=== PATIENT | female | born 1935 | race Caucasian/White ===

== ENCOUNTER 2018-08-24 10:09 | Outpatient (CLI) | payer MEDICARE ==
--- NOTE | 2018-08-24 12:21 | ULT ---
ABDOMINAL AORTIC ULTRASOUND: Date: 08/24/18 COMPARISON: None. HISTORY: Abdominal aortic aneurysm. TECHNIQUE: Multiplanar White scale sonographic imaging of the abdominal aorta. Images include color flow and spec tral analysis. FINDINGS: Evaluation of the abdominal aorta is limited secondary to partial obscuration by bowel gas. The abdominal aorta proximally is estimated to measure up to 3.1 x 2.8 cm. Mid abdominal aorta measur es in the 1.5 x 1.5 cm range and distal abdominal aorta measures in the 1.5 x 1.3 cm range. Right common iliac artery measures approximately 1.0 cm and the left common iliac artery measures shamar roximately 1.1 cm. IMPRESSION: Limited assessment of the abdominal aorta secondary to bowel gas demonstrating probable aneurysmal di lation proximally. A CT examination would be the study of choice to fully assess the abdominal aortic caliber. POS: [facility]
== END 2018-08-24 10:10 | disposition home or self-care (01) ==
LOC: NAV ULT 10:09
PROVIDERS: ATTEND Internal Medicine
DX: I71.4 Abdominal aortic aneurysm, without rupture (principal)
CPT/HCPCS: 76775

== ENCOUNTER 2020-07-15 11:14 | Emergency (ER) | payer MEDICAID, MEDICARE ==
[2020-07-15 11:57] LABS: #Basophils 0.2 thou/uL (0.0-0.2); #Eosinphils 0.3 thou/uL (0.0-0.7); #Lymphocytes 2.5 thou/uL (1.20-3.40); #Monocytes 0.7 thou/uL (0.11-0.59); #Neutrophils 6.5 thou/uL (1.40-6.50); %Basophils 1.6 % (0.0-1.0); %Eosinophils 3.3 % (0.0-10.0); %Lymphocytes 24.1 % (21.0-51.0); %Monocytes 7.2 % (0.0-10.0); %Neutrophils 63.7 % (42.0-75.0); Hemoglobin 5.6 g/dL (12.0-16.0); Mean Corpuscular HGB CONC 27.5 g/dL (32.0-36.0); Mean Corpuscular Hemoglobin 18.2 pg (27.0-31.0); Platelet Count 609 thou/uL (130-400); RBC Distribution Width 15.9 % (11.5-14.5); Red Blood Cell (RBC) Count 3.06 mill/uL (4.20-5.40); White Blood Cell (WBC) Count 10.2 thou/uL (4.8-10.8)
[2020-07-15 12:07] LABS: INR-International Normal Ratio 1.1; PTT 31.5 sec (22.9-36.1); Prothrombin Time 13.8 sec (12.0-14.7)
[2020-07-15 12:08] LABS: ALT (SGPT) 6 U/L (8-55); AST (SGOT) 13 U/L (5-34); Albumin 3.7 g/dL (3.4-4.8); Alkaline Phosphatase 147 U/L (40-110); Anion Gap 13 mmol/L (10-20); BUN (Urea Nitrogen) 14 mg/dL (9.8-20.1); Bilirubin, Total 0.2 mg/dL (0.2-1.2); Calc. Creatinine Clearance 0 mL/min (70-130); Calcium 8.4 mg/dL (7.8-10.44); Carbon Dioxide 24 mmol/L (23-31); Chloride 103 mmol/L (98-107); Estimated GFR-MDRD 60; Globulin 3.4 g/dL (2.4-3.5); Glucose 94 mg/dL (83-110); Potassium 3.7 mmol/L (3.5-5.1); Protein, Total 7.1 g/dL (6.0-8.3); Sodium 136 mmol/L (136-145)
[2020-07-15 12:55] LABS: Bacteria/HPF 4+ HPF (None Seen); Bilirubin Negative (Negative); Blood, Urine Negative (Negative); Clarity SL HAZY (Clear); Glucose, Urine (Dipstick) Negative (Negative); Ketone, Urine Negative (Negative); Leukocyte Large (Negative); Nitrite Positive (Negative); Protein, Urine (Dipstick) Negative (Neg-Trace); Specific Gravity, Urine 1.015 (1.005-1.030); Squamous Epithelial 0-3 HPF (0-3); Transitional Epithelial 0-3 HPF (None Seen); Urobilinogen 0.2 mg/dL (Less than 2); WBC/HPF Greater Than 50 HPF (0-3)
--- NOTE | 2020-07-15 13:04 | RAD ---
PORTABLE CHEST: Date: 07/15/2020 HISTORY: Mental status change. FINDINGS: Mild cardiomegaly. Vascular markings normal. 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 No evidence of infiltrate or effusion. No evidence of vascular congestion. IMPRESSION: No evidence of acute process. POS: [facility]
[2020-07-15] MEDS ORDERED: Pantoprazole 40 MG VIAL ONE (13:19)
== END 2020-07-15 14:22 | disposition short-term general hospital (02) ==
LOC: NAV ERS 11:14
DX: D64.9 Anemia, unspecified (principal); K21.0 Gastro-esophageal reflux disease with esophagitis; I10 Essential (primary) hypertension; F32.9 Major depressive disorder, single episode, unspecified; I48.91 Unspecified atrial fibrillation; Z79.899 Other long term (current) drug therapy
CPT/HCPCS: 51701; 71045; 80053; 81003; 81015; 82274; 83605; 85025; 85610; 85730; 96374; C9113

== ENCOUNTER 2022-09-05 15:05 | Inpatient (IN) | payer MEDICARE ==
[2022-09-05] MEDS ORDERED: Bisacodyl 5 MG TAB PO PRN (16:15)
[2022-09-05] MEDS ORDERED: Acetaminophen 650 MG Suppository PR PRN (16:15)
[2022-09-05] MEDS ORDERED: Bisacodyl 10 MG SUPP PR PRN (16:15)
[2022-09-05] MEDS ORDERED: Acetaminophen 325 MG TAB PO PRN (16:15)
[2022-09-05] MEDS ORDERED: Artificial Tear Sol 15 ML BOT EA EYE PRN (16:15)
[2022-09-05] MEDS ORDERED: Calcium Carbonate 500 MG ChewTAB PO PRN (16:15)
[2022-09-05] MEDS ORDERED: Sodium Chloride 0.65% Nasal 44 ML BOT EA NARE PRN (16:15)
[2022-09-05] MEDS ORDERED: Ondansetron PF 4 MG/2 ML Vial IVP PRN (16:15)
[2022-09-05] MEDS ORDERED: Albuterol Sulfate 2.5 mg/3 ml Neb NEB PRN (16:19)
[2022-09-05 16:53] LABS: Anion Gap 14 mmol/L (10-20); BUN (Urea Nitrogen) 22 mg/dL (9.8-20.1); Calc. Creatinine Clearance 38 mL/min (70-130); Calcium 8.6 mg/dL (7.8-10.44); Carbon Dioxide 24 mmol/L (23-31); Chloride 108 mmol/L (98-107); Estimated GFR 44; Glucose 128 mg/dL (83-110); Potassium 4.9 mmol/L (3.5-5.1); Sodium 141 mmol/L (136-145)
[2022-09-05 16:54] LABS: #Basophils 0.1 thou/uL (0.0-0.2); #Eosinphils 0.4 thou/uL (0.0-0.7); #Lymphocytes 1.6 thou/uL (1.20-3.40); #Monocytes 0.7 thou/uL (0.11-0.59); #Neutrophils 7.1 thou/uL (1.40-6.50); %Eosinophils 4.3 % (0.0-10.0); %Lymphocytes 16.3 % (21.0-51.0); %Monocytes 7.3 % (0.0-10.0); %Neutrophils 71.1 % (42.0-75.0); Hemoglobin 10.2 g/dL (12.0-16.0); Mean Corpuscular Hemoglobin 23.9 pg (27.0-31.0); Mean Corpuscular Volume 79.7 fL (78.0-98.0); Mean Platelet Volume 5.7 fL (7.4-10.4); Platelet Count 424 thou/uL (130-400); RBC Distribution Width 19.2 % (11.5-14.5); Red Blood Cell (RBC) Count 4.26 mill/uL (4.20-5.40)
[2022-09-05] MEDS ORDERED: HYDROcodone/Acetaminophen 5/325 mg Tablet ONE (19:17)
[2022-09-05] MEDS ORDERED: Mirtazapine 30 MG TAB PO SCH (21:00)
[2022-09-05] MEDS: Transdermal Patch Removal TOP SCH (21:41)
[2022-09-05] MEDS: ALPRAZolam 0.5 MG TAB PO PRN (21:47)
[2022-09-05] MEDS: Benzonatate 100 MG CAP PO PRN (21:47)
[2022-09-06] MEDS: HYDROcodone/Acetaminophen 5/325 mg Tablet PO PRN ×4 (05:25→20:44)
[2022-09-06 06:17] LABS: SARS-CoV-2 NAA Rapid Test Not Detected (NotDetected)
[2022-09-06] MEDS: Levothyroxine Sodium 100 MCG TAB PO SCH (08:58)
[2022-09-06] MEDS: DULoxetine 30 MG CAP PO SCH (08:58)
[2022-09-06] MEDS: Lidocaine 5% Patch TD SCH (08:59)
[2022-09-06] MEDS ORDERED: FLU VACC QS2022-23(65YR UP)/PF 240 MCG/0.7 ML SYRINGE IM ONE (09:00)
[2022-09-06] MEDS: Cepastat Lozenges 1 LOZ PO PRN (14:00)
[2022-09-06] MEDS: Polyethylene Glycol 3350 17 GM Packet PO PRN (17:30)
[2022-09-06] MEDS: Benzonatate 100 MG CAP PO PRN (17:32)
[2022-09-06] MEDS ORDERED: Lisinopril 10 MG TAB PO SCH (18:30)
[2022-09-06] MEDS: ALPRAZolam 0.5 MG TAB PO PRN (20:45)
[2022-09-06] MEDS: Transdermal Patch Removal TOP SCH (20:51)
[2022-09-07 00:33] LABS: Bilirubin Negative (Negative); Blood, Urine Negative (Negative); Clarity Clear (Clear); Glucose, Urine (Dipstick) Negative (Negative); Ketone, Urine Negative (Negative); Leukocyte Negative (Negative); Nitrite Negative (Negative); Protein, Urine (Dipstick) Negative (Neg-Trace); Specific Gravity, Urine 1.015 (1.005-1.030); Urobilinogen 0.2 mg/dL (Less than 2); pH, Urine 7.5 (5.0-9.0)
[2022-09-07 00:35] LABS: Bacteria/HPF None Seen HPF (None Seen); RBC/HPF None Seen HPF (0-3); Squamous Epithelial None Seen HPF (0-3); WBC/HPF None Seen HPF (0-3)
[2022-09-07] MEDS: HYDROcodone/Acetaminophen 5/325 mg Tablet PO PRN ×3 (07:16→20:15)
[2022-09-07] MEDS: Levothyroxine Sodium 100 MCG TAB PO SCH (09:09)
[2022-09-07] MEDS: Lidocaine 5% Patch TD SCH (09:09)
[2022-09-07] MEDS: Lisinopril 10 MG TAB PO SCH (09:09)
[2022-09-07] MEDS: DULoxetine 30 MG CAP PO SCH (09:09)
[2022-09-07] MEDS: Polyethylene Glycol 3350 17 GM Packet PO PRN (13:04)
[2022-09-07] MEDS: Benzonatate 100 MG CAP PO PRN (20:15)
[2022-09-07] MEDS: ALPRAZolam 0.5 MG TAB PO PRN (21:27)
[2022-09-07] MEDS: Transdermal Patch Removal TOP SCH (21:32)
[2022-09-08] MEDS: Morphine 4 MG/ML VIAL SLOW IVP PRN (05:20)
[2022-09-08] MEDS: Levothyroxine Sodium 100 MCG TAB PO SCH (09:56)
[2022-09-08] MEDS: Lisinopril 10 MG TAB PO SCH (09:56)
[2022-09-08] MEDS: DULoxetine 30 MG CAP PO SCH (09:56)
[2022-09-08] MEDS: Lidocaine 5% Patch TD SCH (09:57)
[2022-09-08] MEDS: HYDROcodone/Acetaminophen 5/325 mg Tablet PO PRN (14:57)
[2022-09-08] MEDS: ALPRAZolam 0.5 MG TAB PO PRN (20:43)
[2022-09-08] MEDS: Guaifenesin DM 100-10/5 ML UDCUP PO PRN (20:43)
[2022-09-08] MEDS: Transdermal Patch Removal TOP SCH (20:48)
[2022-09-09] MEDS: Guaifenesin DM 100-10/5 ML UDCUP PO PRN ×3 (07:00→20:24)
[2022-09-09] MEDS: HYDROcodone/Acetaminophen 5/325 mg Tablet PO PRN ×3 (07:00→17:57)
[2022-09-09] MEDS: DULoxetine 30 MG CAP PO SCH (09:00)
[2022-09-09] MEDS: Levothyroxine Sodium 100 MCG TAB PO SCH (09:00)
[2022-09-09] MEDS: Lisinopril 10 MG TAB PO SCH (09:00)
[2022-09-09] MEDS: Lidocaine 5% Patch TD SCH (09:01)
[2022-09-09] MEDS: ALPRAZolam 0.5 MG TAB PO PRN (20:23)
[2022-09-09] MEDS: Transdermal Patch Removal TOP SCH (20:35)
[2022-09-10] MEDS: Levothyroxine Sodium 100 MCG TAB PO SCH (05:00)
[2022-09-10] MEDS: Morphine 4 MG/ML VIAL SLOW IVP PRN ×2 (06:29→14:58)
[2022-09-10] MEDS: DULoxetine 30 MG CAP PO SCH (07:47)
[2022-09-10] MEDS: Lisinopril 10 MG TAB PO SCH (07:47)
[2022-09-10] MEDS: Lidocaine 5% Patch TD SCH (07:48)
[2022-09-10] MEDS: Benzonatate 100 MG CAP PO PRN (15:06)
[2022-09-10] MEDS: HYDROcodone/Acetaminophen 5/325 mg Tablet PO PRN (20:57)
[2022-09-10] MEDS: Transdermal Patch Removal TOP SCH (20:58)
[2022-09-10] MEDS ORDERED: ALPRAZolam 0.5 MG TAB ONE (21:20)
[2022-09-10] MEDS: ALPRAZolam 0.5 MG TAB PO PRN (21:59)
[2022-09-11] MEDS: Cepastat Lozenges 1 LOZ PO PRN ×2 (05:39→08:11)
[2022-09-11] MEDS: Levothyroxine Sodium 100 MCG TAB PO SCH (05:39)
[2022-09-11] MEDS: Morphine 4 MG/ML VIAL SLOW IVP PRN (07:53)
[2022-09-11] MEDS: Lidocaine 5% Patch TD SCH (08:03)
[2022-09-11] MEDS: Lisinopril 10 MG TAB PO SCH (08:06)
[2022-09-11] MEDS: DULoxetine 30 MG CAP PO SCH (08:06)
[2022-09-11] MEDS: Ondansetron ODT 4 MG TAB PO PRN (11:05)
[2022-09-11] MEDS: HYDROcodone/Acetaminophen 5/325 mg Tablet PO PRN ×3 (11:26→20:40)
[2022-09-11] MEDS: Cyclobenzaprine 10 MG TAB PO PRN ×2 (13:14→20:40)
[2022-09-11] MEDS: Senokot S 8.6-50 MG TAB PO PRN (15:38)
[2022-09-11] MEDS: Transdermal Patch Removal TOP SCH (16:16)
[2022-09-11 20:34] VITALS: BMI 27.0
[2022-09-11] MEDS: ALPRAZolam 0.5 MG TAB PO PRN (20:40)
[2022-09-12] MEDS: Levothyroxine Sodium 100 MCG TAB PO SCH (06:26)
[2022-09-12] MEDS: Cyclobenzaprine 10 MG TAB PO PRN ×2 (06:26→10:33)
[2022-09-12 06:29] LABS: Anion Gap 15 mmol/L (10-20); BUN (Urea Nitrogen) 31 mg/dL (9.8-20.1); Calc. Creatinine Clearance 37 mL/min (70-130); Calcium 9.1 mg/dL (7.8-10.44); Carbon Dioxide 25 mmol/L (23-31); Chloride 103 mmol/L (98-107); Estimated GFR 39; Glucose 102 mg/dL (83-110); Potassium 4.8 mmol/L (3.5-5.1); Sodium 138 mmol/L (136-145)
[2022-09-12 06:46] LABS: #Basophils 0.1 thou/uL (0.0-0.2); #Eosinphils 0.3 thou/uL (0.0-0.7); #Lymphocytes 1.6 thou/uL (1.20-3.40); #Monocytes 0.7 thou/uL (0.11-0.59); #Neutrophils 5.9 thou/uL (1.40-6.50); %Basophils 1.4 % (0.0-1.0); %Eosinophils 3.4 % (0.0-10.0); %Lymphocytes 18.4 % (21.0-51.0); %Neutrophils 68.9 % (42.0-75.0); Hemoglobin 10.7 g/dL (12.0-16.0); Mean Corpuscular HGB CONC 29.8 g/dL (32.0-36.0); Mean Corpuscular Hemoglobin 23.9 pg (27.0-31.0); Mean Corpuscular Volume 80.3 fl (78.0-98.0); Mean Platelet Volume 6.3 fL (7.4-10.4); Platelet Count 386 thou/uL (130-400); RBC Distribution Width 19.1 % (11.5-14.5); Red Blood Cell (RBC) Count 4.46 mill/uL (4.20-5.40); White Blood Cell (WBC) Count 8.5 thou/uL (4.8-10.8)
[2022-09-12] MEDS: HYDROcodone/Acetaminophen 5/325 mg Tablet PO PRN ×3 (08:12→19:48)
[2022-09-12] MEDS: DULoxetine 30 MG CAP PO SCH (08:12)
[2022-09-12] MEDS: Lidocaine 5% Patch TD SCH (08:12)
[2022-09-12] MEDS: Lisinopril 10 MG TAB PO SCH (08:13)
[2022-09-12] MEDS: Senokot S 8.6-50 MG TAB PO PRN (16:06)
[2022-09-12] MEDS: Ondansetron ODT 4 MG TAB PO PRN (19:48)
[2022-09-12] MEDS: ALPRAZolam 0.5 MG TAB PO PRN (19:52)
[2022-09-12] MEDS: Transdermal Patch Removal TOP SCH (19:54)
[2022-09-13] MEDS: HYDROcodone/Acetaminophen 5/325 mg Tablet PO PRN ×4 (03:41→17:33)
[2022-09-13] MEDS: Cyclobenzaprine 10 MG TAB PO PRN ×2 (05:48→12:17)
[2022-09-13] MEDS: Levothyroxine Sodium 100 MCG TAB PO SCH (05:48)
[2022-09-13] MEDS: DULoxetine 30 MG CAP PO SCH (08:01)
[2022-09-13] MEDS: Lidocaine 5% Patch TD SCH (08:03)
[2022-09-13] MEDS: Lisinopril 10 MG TAB PO SCH (08:03)
[2022-09-13] MEDS ORDERED: Senokot S 8.6-50 MG TAB PO PRN (11:15)
[2022-09-13] MEDS: Morphine 4 MG/ML VIAL SLOW IVP PRN (15:26)
[2022-09-13 16:11] VITALS: BP 128/77; TEMP 98.4
== END 2022-09-13 17:56 | disposition swing bed (61) | DRG 552 ==
LOC: NAV ACUTE 15:05
PROVIDERS: ADMIT Family Medicine; ATTEND Family Medicine
DX: S22.080A Wedge compression fracture of T11-T12 vertebra, initial encounter for closed fracture (principal); S32.040A Wedge compression fracture of fourth lumbar vertebra, initial encounter for closed fracture; N17.9 Acute kidney failure, unspecified; F32.A Depression, unspecified; R30.0 Dysuria; I48.91 Unspecified atrial fibrillation; E03.9 Hypothyroidism, unspecified; I10 Essential (primary) hypertension; K21.9 Gastro-esophageal reflux disease without esophagitis; Z96.643 Presence of artificial hip joint, bilateral; Z96.651 Presence of right artificial knee joint; E78.2 Mixed hyperlipidemia; R53.1 Weakness; F41.9 Anxiety disorder, unspecified; Z98.890 Other specified postprocedural states; Z79.890 Hormone replacement therapy; Z90.49 Acquired absence of other specified parts of digestive tract; Z90.81 Acquired absence of spleen; Z99.3 Dependence on wheelchair; Z79.899 Other long term (current) drug therapy; Z79.51 Long term (current) use of inhaled steroids; Z20.822 Contact with and (suspected) exposure to COVID-19
CPT/HCPCS: 36415; 80048; 81001; 85025; 90471; 90662; 90732; G0008; G0009; J2270; Q0162; U0002

== ENCOUNTER 2022-09-13 17:03 | Inpatient (IN) | payer MEDICARE ==
[2022-09-13] MEDS ORDERED: Calcium Carbonate 500 MG ChewTAB PO PRN ×2 (17:53)
[2022-09-13] MEDS ORDERED: Ondansetron ODT 4 MG TAB PO PRN (17:53)
[2022-09-13] MEDS ORDERED: Nitroglycerin 0.4 MG TAB (25 Tab Bottle) SL PRN (17:53)
[2022-09-13] MEDS ORDERED: Sodium Chloride 0.65% Nasal 44 ML BOT EA NARE PRN (17:53)
[2022-09-13] MEDS ORDERED: Artificial Tear Sol 15 ML BOT EA EYE PRN (17:53)
[2022-09-13] MEDS ORDERED: Bisacodyl 5 MG TAB PO PRN (17:53)
[2022-09-13] MEDS ORDERED: Acetaminophen 500 MG TAB PO PRN (17:53)
[2022-09-13] MEDS ORDERED: Bisacodyl 10 MG SUPP PR PRN (17:53)
[2022-09-13] MEDS ORDERED: Acetaminophen 325 MG TAB PO PRN (20:00)
[2022-09-13] MEDS: ALPRAZolam 0.5 MG TAB PO SCH (20:40)
[2022-09-13] MEDS ORDERED: Famotidine 20 MG TAB PO SCH (21:00)
[2022-09-14 05:36] LABS: #Basophils 0.1 thou/uL (0.0-0.2); #Eosinphils 0.4 thou/uL (0.0-0.7); #Lymphocytes 1.9 thou/uL (1.20-3.40); #Monocytes 0.5 thou/uL (0.11-0.59); %Basophils 1.3 % (0.0-1.0); %Eosinophils 4.6 % (0.0-10.0); %Lymphocytes 23.5 % (21.0-51.0); %Monocytes 6.8 % (0.0-10.0); %Neutrophils 63.7 % (42.0-75.0); Hemoglobin 9.9 g/dL (12.0-16.0); Mean Corpuscular HGB CONC 29.7 g/dL (32.0-36.0); Mean Corpuscular Hemoglobin 23.5 pg (27.0-31.0); Mean Corpuscular Volume 79.1 fl (78.0-98.0); Mean Platelet Volume 6.3 fL (7.4-10.4); Platelet Count 362 thou/uL (130-400); RBC Distribution Width 18.8 % (11.5-14.5); Red Blood Cell (RBC) Count 4.23 mill/uL (4.20-5.40); White Blood Cell (WBC) Count 7.9 thou/uL (4.8-10.8)
[2022-09-14] MEDS: HYDROcodone/Acetaminophen 5/325 mg Tablet PO PRN ×3 (05:40→14:33)
[2022-09-14] MEDS: Levothyroxine Sodium 100 MCG TAB PO SCH (05:40)
[2022-09-14 05:46] LABS: ALT (SGPT) 13 U/L (8-55); AST (SGOT) 14 U/L (5-34); Albumin 3.6 g/dL (3.4-4.8); Alkaline Phosphatase 127 U/L (40-110); Anion Gap 10 mmol/L (10-20); BUN (Urea Nitrogen) 25 mg/dL (9.8-20.1); Bilirubin, Total 0.2 mg/dL (0.2-1.2); Calc. Creatinine Clearance 55 mL/min (70-130); Calcium 8.9 mg/dL (7.8-10.44); Carbon Dioxide 26 mmol/L (23-31); Chloride 105 mmol/L (98-107); Estimated GFR 63; Globulin 3.3 g/dL (2.4-3.5); Glucose 103 mg/dL (83-110); Protein, Total 6.9 g/dL (5.8-8.1); Sodium 136 mmol/L (136-145)
[2022-09-14] MEDS: DULoxetine 30 MG CAP PO SCH (09:59)
[2022-09-14] MEDS: Enoxaparin Sodium 40 MG/0.4 ML SYRINGE SC SCH (09:59)
[2022-09-14] MEDS: Senokot S 8.6-50 MG TAB PO PRN (10:03)
[2022-09-14] MEDS: ALPRAZolam 0.5 MG TAB PO SCH (20:10)
[2022-09-14] MEDS: Cyclobenzaprine 10 MG TAB PO PRN (20:11)
[2022-09-15] MEDS: HYDROcodone/Acetaminophen 5/325 mg Tablet PO PRN ×4 (03:31→20:08)
[2022-09-15] MEDS: Levothyroxine Sodium 100 MCG TAB PO SCH (06:25)
[2022-09-15] MEDS: DULoxetine 30 MG CAP PO SCH (08:33)
[2022-09-15] MEDS: Lidocaine 5% Patch TD SCH (08:33)
[2022-09-15] MEDS: Enoxaparin Sodium 40 MG/0.4 ML SYRINGE SC SCH (08:33)
[2022-09-15] MEDS: Cyclobenzaprine 10 MG TAB PO PRN ×2 (08:33→14:16)
[2022-09-15] MEDS: ALPRAZolam 0.5 MG TAB PO SCH (20:08)
[2022-09-15] MEDS: Mirtazapine 30 MG TAB PO SCH (20:09)
[2022-09-15] MEDS: Transdermal Patch Removal TOP SCH (20:09)
[2022-09-16] MEDS: Levothyroxine Sodium 100 MCG TAB PO SCH (05:25)
[2022-09-16] MEDS: Enoxaparin Sodium 40 MG/0.4 ML SYRINGE SC SCH (07:56)
[2022-09-16] MEDS: Lidocaine 5% Patch TD SCH (07:56)
[2022-09-16] MEDS: HYDROcodone/Acetaminophen 5/325 mg Tablet PO PRN ×3 (07:57→19:46)
[2022-09-16] MEDS: DULoxetine 30 MG CAP PO SCH (07:59)
[2022-09-16] MEDS: Lisinopril 5 MG TAB PO SCH (07:59)
[2022-09-16] MEDS: Cyclobenzaprine 10 MG TAB PO PRN (09:59)
[2022-09-16] MEDS: Benzonatate 100 MG CAP PO PRN (14:52)
[2022-09-16] MEDS: ALPRAZolam 0.5 MG TAB PO SCH (19:46)
[2022-09-16] MEDS: Mirtazapine 30 MG TAB PO SCH (19:47)
[2022-09-16] MEDS: Transdermal Patch Removal TOP SCH (19:47)
[2022-09-17 06:30] LABS: #Basophils 0.1 thou/uL (0.0-0.2); #Eosinphils 0.3 thou/uL (0.0-0.7); #Lymphocytes 2.5 thou/uL (1.20-3.40); #Monocytes 0.6 thou/uL (0.11-0.59); #Neutrophils 5.1 thou/uL (1.40-6.50); %Basophils 1.7 % (0.0-1.0); %Eosinophils 3.1 % (0.0-10.0); %Lymphocytes 28.7 % (21.0-51.0); %Monocytes 7.2 % (0.0-10.0); %Neutrophils 59.4 % (42.0-75.0); Hemoglobin 10.9 g/dL (12.0-16.0); Mean Corpuscular HGB CONC 30.1 g/dL (32.0-36.0); Mean Corpuscular Volume 79.8 fl (78.0-98.0); Mean Platelet Volume 6.3 fL (7.4-10.4); Platelet Count 369 thou/uL (130-400); RBC Distribution Width 19.2 % (11.5-14.5); Red Blood Cell (RBC) Count 4.52 mill/uL (4.20-5.40); White Blood Cell (WBC) Count 8.6 thou/uL (4.8-10.8)
[2022-09-17 06:38] LABS: ALT (SGPT) 12 U/L (8-55); AST (SGOT) 12 U/L (5-34); Albumin 3.7 g/dL (3.4-4.8); Alkaline Phosphatase 114 U/L (40-110); Anion Gap 14 mmol/L (10-20); BUN (Urea Nitrogen) 24 mg/dL (9.8-20.1); Bilirubin, Total 0.2 mg/dL (0.2-1.2); Calc. Creatinine Clearance 51 mL/min (70-130); Calcium 9.3 mg/dL (7.8-10.44); Carbon Dioxide 29 mmol/L (23-31); Chloride 102 mmol/L (98-107); Estimated GFR 61; Globulin 3.4 g/dL (2.4-3.5); Glucose 108 mg/dL (83-110); Potassium 4.6 mmol/L (3.5-5.1); Protein, Total 7.1 g/dL (5.8-8.1); Sodium 140 mmol/L (136-145)
[2022-09-17] MEDS: HYDROcodone/Acetaminophen 5/325 mg Tablet PO PRN ×3 (06:39→14:21)
[2022-09-17] MEDS: Lidocaine 5% Patch TD SCH (10:03)
[2022-09-17] MEDS: DULoxetine 30 MG CAP PO SCH (10:04)
[2022-09-17] MEDS: Enoxaparin Sodium 40 MG/0.4 ML SYRINGE SC SCH (10:05)
[2022-09-17] MEDS: Lisinopril 5 MG TAB PO SCH (10:05)
[2022-09-17] MEDS: Senokot S 8.6-50 MG TAB PO PRN (10:10)
[2022-09-17] MEDS: Cyclobenzaprine 10 MG TAB PO PRN (12:54)
[2022-09-17] MEDS: Transdermal Patch Removal TOP SCH (20:53)
[2022-09-17] MEDS: Mirtazapine 30 MG TAB PO SCH (20:53)
[2022-09-17] MEDS: ALPRAZolam 0.5 MG TAB PO SCH (21:44)
[2022-09-18] MEDS: Levothyroxine Sodium 100 MCG TAB PO SCH ×3 (05:38→19:01)
[2022-09-18] MEDS: Senokot S 8.6-50 MG TAB PO PRN (05:42)
[2022-09-18] MEDS: HYDROcodone/Acetaminophen 5/325 mg Tablet PO PRN ×3 (05:47→23:02)
[2022-09-18] MEDS: Enoxaparin Sodium 40 MG/0.4 ML SYRINGE SC SCH (08:26)
[2022-09-18] MEDS: DULoxetine 30 MG CAP PO SCH (08:26)
[2022-09-18] MEDS: Lidocaine 5% Patch TD SCH (08:26)
[2022-09-18] MEDS: Lisinopril 5 MG TAB PO SCH (08:27)
[2022-09-18] MEDS: Benzonatate 100 MG CAP PO PRN ×2 (08:29→23:07)
[2022-09-18] MEDS: Cyclobenzaprine 10 MG TAB PO PRN ×2 (10:59→17:58)
[2022-09-18] MEDS: Guaifenesin DM 100-10/5 ML UDCUP PO PRN (15:08)
[2022-09-18] MEDS: Transdermal Patch Removal TOP SCH (20:31)
[2022-09-18] MEDS: ALPRAZolam 0.5 MG TAB PO SCH (20:31)
[2022-09-18] MEDS: Mirtazapine 30 MG TAB PO SCH (20:31)
[2022-09-19] MEDS: Levothyroxine Sodium 100 MCG TAB PO SCH (06:01)
[2022-09-19] MEDS: Enoxaparin Sodium 40 MG/0.4 ML SYRINGE SC SCH (08:50)
[2022-09-19] MEDS: HYDROcodone/Acetaminophen 5/325 mg Tablet PO PRN ×3 (08:51→21:14)
[2022-09-19] MEDS: Lidocaine 5% Patch TD SCH (08:51)
[2022-09-19] MEDS: DULoxetine 30 MG CAP PO SCH (08:52)
[2022-09-19] MEDS: Lisinopril 5 MG TAB PO SCH (09:01)
[2022-09-19] MEDS: Senokot S 8.6-50 MG TAB PO PRN (10:14)
[2022-09-19] MEDS: Cyclobenzaprine 10 MG TAB PO PRN ×2 (10:15→17:20)
[2022-09-19] MEDS: Benzonatate 100 MG CAP PO PRN ×2 (12:42→21:12)
[2022-09-19] MEDS: ALPRAZolam 0.5 MG TAB PO SCH (21:12)
[2022-09-19] MEDS: Mirtazapine 30 MG TAB PO SCH (21:12)
[2022-09-19] MEDS: Transdermal Patch Removal TOP SCH (21:13)
[2022-09-20 06:03] LABS: #Basophils 0.1 thou/uL (0.0-0.2); #Eosinphils 0.3 thou/uL (0.0-0.7); #Lymphocytes 2.3 thou/uL (1.20-3.40); #Monocytes 0.6 thou/uL (0.11-0.59); #Neutrophils 5.2 thou/uL (1.40-6.50); %Basophils 1.3 % (0.0-1.0); %Eosinophils 3.4 % (0.0-10.0); %Lymphocytes 26.9 % (21.0-51.0); %Monocytes 6.6 % (0.0-10.0); %Neutrophils 61.8 % (42.0-75.0); Hemoglobin 10.1 g/dL (12.0-16.0); Mean Corpuscular HGB CONC 30.2 g/dL (32.0-36.0); Mean Corpuscular Volume 79.5 fl (78.0-98.0); Platelet Count 337 thou/uL (130-400); RBC Distribution Width 19.1 % (11.5-14.5); White Blood Cell (WBC) Count 8.5 thou/uL (4.8-10.8)
[2022-09-20] MEDS: Levothyroxine Sodium 100 MCG TAB PO SCH (06:03)
[2022-09-20 06:17] LABS: ALT (SGPT) 10 U/L (8-55); AST (SGOT) 10 U/L (5-34); Albumin 3.5 g/dL (3.4-4.8); Alkaline Phosphatase 94 U/L (40-110); Anion Gap 12 mmol/L (10-20); BUN (Urea Nitrogen) 24 mg/dL (9.8-20.1); Bilirubin, Total 0.2 mg/dL (0.2-1.2); Calc. Creatinine Clearance 53 mL/min (70-130); Calcium 8.7 mg/dL (7.8-10.44); Carbon Dioxide 26 mmol/L (23-31); Chloride 106 mmol/L (98-107); Estimated GFR 63; Globulin 3.1 g/dL (2.4-3.5); Glucose 98 mg/dL (83-110); Potassium 4.4 mmol/L (3.5-5.1); Protein, Total 6.6 g/dL (5.8-8.1); Sodium 140 mmol/L (136-145)
[2022-09-20] MEDS: HYDROcodone/Acetaminophen 5/325 mg Tablet PO PRN ×3 (06:17→18:47)
[2022-09-20] MEDS: Cyclobenzaprine 10 MG TAB PO PRN ×3 (06:17→18:48)
[2022-09-20] MEDS: Benzonatate 100 MG CAP PO PRN ×2 (08:22→18:48)
[2022-09-20] MEDS: Enoxaparin Sodium 40 MG/0.4 ML SYRINGE SC SCH (08:24)
[2022-09-20] MEDS: Lidocaine 5% Patch TD SCH (08:26)
[2022-09-20] MEDS: DULoxetine 30 MG CAP PO SCH (08:27)
[2022-09-20] MEDS: Lisinopril 5 MG TAB PO SCH (08:28)
[2022-09-20] MEDS ORDERED: Loratadine 10 MG TAB PO SCH (13:30)
[2022-09-20] MEDS ORDERED: Ibuprofen 200 MG TAB PO PRN (16:18)
[2022-09-20] MEDS: ALPRAZolam 0.5 MG TAB PO SCH (20:21)
[2022-09-20] MEDS: Mirtazapine 30 MG TAB PO SCH (20:22)
[2022-09-20] MEDS: Transdermal Patch Removal TOP SCH (20:26)
[2022-09-21] MEDS: Levothyroxine Sodium 100 MCG TAB PO SCH (05:42)
[2022-09-21] MEDS: Lisinopril 5 MG TAB PO SCH (08:34)
[2022-09-21] MEDS: DULoxetine 30 MG CAP PO SCH (08:37)
[2022-09-21] MEDS: Enoxaparin Sodium 40 MG/0.4 ML SYRINGE SC SCH (08:37)
[2022-09-21] MEDS: Loratadine 10 MG TAB PO SCH (08:37)
[2022-09-21] MEDS: Lidocaine 5% Patch TD SCH (08:38)
[2022-09-21] MEDS ORDERED: Diclofenac 1% 100 GM GEL TP SCH (10:00)
[2022-09-21] MEDS ORDERED: Ibuprofen 200 MG TAB PO PRN (10:02)
[2022-09-21] MEDS: Benzonatate 100 MG CAP PO PRN ×2 (10:34→17:02)
[2022-09-21] MEDS: Acetaminophen 500 MG TAB PO SCH ×2 (11:58→18:16)
[2022-09-21] MEDS: HYDROcodone/Acetaminophen 5/325 mg Tablet PO PRN (17:03)
[2022-09-21] MEDS: Cyclobenzaprine 10 MG TAB PO PRN (17:04)
[2022-09-21] MEDS: Senokot S 8.6-50 MG TAB PO PRN (20:25)
[2022-09-21] MEDS: Mirtazapine 30 MG TAB PO SCH (20:26)
[2022-09-21] MEDS: Guaifenesin DM 100-10/5 ML UDCUP PO PRN (20:26)
[2022-09-21] MEDS: Cepastat Lozenges 1 LOZ PO PRN (20:26)
[2022-09-21] MEDS: ALPRAZolam 0.5 MG TAB PO SCH (20:26)
[2022-09-21] MEDS: Transdermal Patch Removal TOP SCH (20:27)
[2022-09-21] MEDS: Fluticasone Propionate Nasal Spray 16 gm Bottle NASAL SCH (20:28)
[2022-09-22] MEDS: Acetaminophen 500 MG TAB PO SCH ×3 (02:25→18:41)
[2022-09-22] MEDS: Benzonatate 100 MG CAP PO PRN ×2 (02:26→10:35)
[2022-09-22] MEDS: Cepastat Lozenges 1 LOZ PO PRN ×3 (02:27→10:35)
[2022-09-22] MEDS: Levothyroxine Sodium 100 MCG TAB PO SCH (05:41)
[2022-09-22] MEDS: Cyclobenzaprine 10 MG TAB PO PRN ×3 (06:37→20:59)
[2022-09-22] MEDS: HYDROcodone/Acetaminophen 5/325 mg Tablet PO PRN ×2 (06:37→16:38)
[2022-09-22] MEDS: Diclofenac 1% 100 GM GEL TP SCH (08:13)
[2022-09-22] MEDS: Lidocaine 5% Patch TD SCH (08:16)
[2022-09-22] MEDS: Enoxaparin Sodium 40 MG/0.4 ML SYRINGE SC SCH (08:17)
[2022-09-22] MEDS: Lisinopril 5 MG TAB PO SCH (08:18)
[2022-09-22] MEDS: Loratadine 10 MG TAB PO SCH (08:18)
[2022-09-22] MEDS: DULoxetine 30 MG CAP PO SCH (08:18)
[2022-09-22] MEDS: Guaifenesin DM 100-10/5 ML UDCUP PO PRN (11:17)
[2022-09-22] MEDS: Mirtazapine 30 MG TAB PO SCH (20:59)
[2022-09-22] MEDS: Transdermal Patch Removal TOP SCH (21:00)
[2022-09-22] MEDS: ALPRAZolam 0.5 MG TAB PO SCH (21:00)
[2022-09-22] MEDS: Fluticasone Propionate Nasal Spray 16 gm Bottle NASAL SCH (21:00)
[2022-09-23] MEDS: Acetaminophen 500 MG TAB PO SCH ×3 (02:24→17:45)
[2022-09-23] MEDS: Levothyroxine Sodium 100 MCG TAB PO SCH (06:11)
[2022-09-23 08:33] LABS: #Basophils 0.1 thou/uL (0.0-0.2); #Eosinphils 0.2 thou/uL (0.0-0.7); #Lymphocytes 1.5 thou/uL (1.20-3.40); #Monocytes 0.5 thou/uL (0.11-0.59); #Neutrophils 4.4 thou/uL (1.40-6.50); %Basophils 1.6 % (0.0-1.0); %Eosinophils 3.3 % (0.0-10.0); %Lymphocytes 22.4 % (21.0-51.0); %Monocytes 7.4 % (0.0-10.0); %Neutrophils 65.4 % (42.0-75.0); Hemoglobin 10.3 g/dL (12.0-16.0); Mean Corpuscular HGB CONC 30.7 g/dL (32.0-36.0); Mean Corpuscular Hemoglobin 24.3 pg (27.0-31.0); Mean Platelet Volume 6.1 fL (7.4-10.4); Platelet Count 339 thou/uL (130-400); RBC Distribution Width 19.2 % (11.5-14.5); Red Blood Cell (RBC) Count 4.26 mill/uL (4.20-5.40); White Blood Cell (WBC) Count 6.8 thou/uL (4.8-10.8)
[2022-09-23] MEDS: HYDROcodone/Acetaminophen 5/325 mg Tablet PO PRN ×2 (08:33→21:37)
[2022-09-23] MEDS: Cyclobenzaprine 10 MG TAB PO PRN ×2 (08:33→21:37)
[2022-09-23 08:34] LABS: ALT (SGPT) 11 U/L (8-55); AST (SGOT) 11 U/L (5-34); Albumin 3.5 g/dL (3.4-4.8); Alkaline Phosphatase 94 U/L (40-110); Anion Gap 13 mmol/L (10-20); BUN (Urea Nitrogen) 24 mg/dL (9.8-20.1); Bilirubin, Total 0.2 mg/dL (0.2-1.2); Calc. Creatinine Clearance 51 mL/min (70-130); Calcium 8.8 mg/dL (7.8-10.44); Carbon Dioxide 25 mmol/L (23-31); Chloride 107 mmol/L (98-107); Estimated GFR 62; Globulin 3.2 g/dL (2.4-3.5); Glucose 99 mg/dL (83-110); Potassium 4.6 mmol/L (3.5-5.1); Protein, Total 6.7 g/dL (5.8-8.1); Sodium 140 mmol/L (136-145)
[2022-09-23] MEDS: Diclofenac 1% 100 GM GEL TP SCH (08:37)
[2022-09-23] MEDS: DULoxetine 30 MG CAP PO SCH (08:39)
[2022-09-23] MEDS: Enoxaparin Sodium 40 MG/0.4 ML SYRINGE SC SCH (08:39)
[2022-09-23] MEDS: Lidocaine 5% Patch TD SCH (08:39)
[2022-09-23] MEDS: Loratadine 10 MG TAB PO SCH (08:40)
[2022-09-23] MEDS: Lisinopril 5 MG TAB PO SCH (08:40)
[2022-09-23] MEDS: Cepastat Lozenges 1 LOZ PO PRN (12:55)
[2022-09-23] MEDS: Benzonatate 100 MG CAP PO PRN (12:55)
[2022-09-23] MEDS: Guaifenesin DM 100-10/5 ML UDCUP PO PRN (17:15)
[2022-09-23] MEDS: Mirtazapine 30 MG TAB PO SCH (21:37)
[2022-09-23] MEDS: ALPRAZolam 0.5 MG TAB PO SCH (21:37)
[2022-09-23] MEDS: Transdermal Patch Removal TOP SCH (21:39)
[2022-09-23] MEDS: Fluticasone Propionate Nasal Spray 16 gm Bottle NASAL SCH (21:42)
[2022-09-24] MEDS: Acetaminophen 500 MG TAB PO SCH ×3 (02:14→18:19)
[2022-09-24] MEDS: Levothyroxine Sodium 100 MCG TAB PO SCH (05:28)
[2022-09-24] MEDS: Diclofenac 1% 100 GM GEL TP SCH (07:13)
[2022-09-24] MEDS: Enoxaparin Sodium 40 MG/0.4 ML SYRINGE SC SCH (07:14)
[2022-09-24] MEDS: Lidocaine 5% Patch TD SCH (07:14)
[2022-09-24] MEDS: Lisinopril 5 MG TAB PO SCH (07:14)
[2022-09-24] MEDS: Cyclobenzaprine 10 MG TAB PO PRN ×3 (07:15→20:17)
[2022-09-24] MEDS: Loratadine 10 MG TAB PO SCH (07:15)
[2022-09-24] MEDS: HYDROcodone/Acetaminophen 5/325 mg Tablet PO PRN ×3 (07:15→20:17)
[2022-09-24] MEDS: DULoxetine 30 MG CAP PO SCH (07:15)
[2022-09-24] MEDS: Benzonatate 100 MG CAP PO PRN ×2 (13:09→20:16)
[2022-09-24] MEDS: Cepastat Lozenges 1 LOZ PO PRN (18:18)
[2022-09-24] MEDS: Senokot S 8.6-50 MG TAB PO PRN (20:16)
[2022-09-24] MEDS: Mirtazapine 30 MG TAB PO SCH (20:17)
[2022-09-24] MEDS: ALPRAZolam 0.5 MG TAB PO SCH (20:17)
[2022-09-24] MEDS: Transdermal Patch Removal TOP SCH (20:18)
[2022-09-24] MEDS: Fluticasone Propionate Nasal Spray 16 gm Bottle NASAL SCH (20:18)
[2022-09-25] MEDS: Acetaminophen 500 MG TAB PO SCH ×3 (01:25→17:56)
[2022-09-25] MEDS: Levothyroxine Sodium 100 MCG TAB PO SCH (05:46)
[2022-09-25] MEDS: Diclofenac 1% 100 GM GEL TP SCH (08:05)
[2022-09-25] MEDS: DULoxetine 30 MG CAP PO SCH (08:07)
[2022-09-25] MEDS: Lidocaine 5% Patch TD SCH (08:07)
[2022-09-25] MEDS: Loratadine 10 MG TAB PO SCH (08:07)
[2022-09-25] MEDS: Enoxaparin Sodium 40 MG/0.4 ML SYRINGE SC SCH (08:08)
[2022-09-25] MEDS: Lisinopril 5 MG TAB PO SCH (08:18)
[2022-09-25] MEDS: HYDROcodone/Acetaminophen 5/325 mg Tablet PO PRN ×2 (08:33→20:18)
[2022-09-25] MEDS: Cyclobenzaprine 10 MG TAB PO PRN ×2 (08:34→20:18)
[2022-09-25] MEDS: Guaifenesin DM 100-10/5 ML UDCUP PO PRN (10:14)
[2022-09-25] MEDS: Senokot S 8.6-50 MG TAB PO PRN (14:44)
[2022-09-25] MEDS: Cepastat Lozenges 1 LOZ PO PRN (14:45)
[2022-09-25] MEDS: Benzonatate 100 MG CAP PO PRN (20:18)
[2022-09-25] MEDS: ALPRAZolam 0.5 MG TAB PO SCH (20:18)
[2022-09-25] MEDS: Mirtazapine 30 MG TAB PO SCH (20:18)
[2022-09-25] MEDS: Fluticasone Propionate Nasal Spray 16 gm Bottle NASAL SCH (20:20)
[2022-09-25] MEDS: Transdermal Patch Removal TOP SCH (20:20)
[2022-09-26] MEDS: Acetaminophen 500 MG TAB PO SCH ×3 (02:13→17:13)
[2022-09-26] MEDS: Levothyroxine Sodium 100 MCG TAB PO SCH (05:47)
[2022-09-26 06:13] LABS: ALT (SGPT) 10 U/L (8-55); AST (SGOT) 10 U/L (5-34); Albumin 3.5 g/dL (3.4-4.8); Alkaline Phosphatase 85 U/L (40-110); Anion Gap 12 mmol/L (10-20); BUN (Urea Nitrogen) 27 mg/dL (9.8-20.1); Bilirubin, Total 0.2 mg/dL (0.2-1.2); Calc. Creatinine Clearance 51 mL/min (70-130); Calcium 8.9 mg/dL (7.8-10.44); Carbon Dioxide 25 mmol/L (23-31); Chloride 107 mmol/L (98-107); Estimated GFR 62; Globulin 3.1 g/dL (2.4-3.5); Glucose 94 mg/dL (83-110); Potassium 4.5 mmol/L (3.5-5.1); Protein, Total 6.6 g/dL (5.8-8.1); Sodium 139 mmol/L (136-145)
[2022-09-26 06:52] LABS: #Basophils 0.1 thou/uL (0.0-0.2); #Eosinphils 0.3 thou/uL (0.0-0.7); #Lymphocytes 1.9 thou/uL (1.20-3.40); #Monocytes 0.5 thou/uL (0.11-0.59); #Neutrophils 4.2 thou/uL (1.40-6.50); %Basophils 1.2 % (0.0-1.0); %Eosinophils 4.1 % (0.0-10.0); %Lymphocytes 28.1 % (21.0-51.0); %Monocytes 7.9 % (0.0-10.0); %Neutrophils 58.8 % (42.0-75.0); Mean Corpuscular HGB CONC 30.8 g/dL (32.0-36.0); Mean Corpuscular Hemoglobin 24.4 pg (27.0-31.0); Mean Corpuscular Volume 79.3 fl (78.0-98.0); Mean Platelet Volume 5.9 fL (7.4-10.4); Platelet Count 327 10x3/uL (130-400); White Blood Cell (WBC) Count 7.1 10x3/uL (4.8-10.8)
[2022-09-26] MEDS: Guaifenesin DM 100-10/5 ML UDCUP PO PRN (07:58)
[2022-09-26] MEDS: HYDROcodone/Acetaminophen 5/325 mg Tablet PO PRN ×3 (07:58→19:59)
[2022-09-26] MEDS: Cyclobenzaprine 10 MG TAB PO PRN ×3 (07:59→19:59)
[2022-09-26] MEDS: Enoxaparin Sodium 40 MG/0.4 ML SYRINGE SC SCH (08:51)
[2022-09-26] MEDS: Loratadine 10 MG TAB PO SCH (08:52)
[2022-09-26] MEDS: Lidocaine 5% Patch TD SCH (08:52)
[2022-09-26] MEDS: Diclofenac 1% 100 GM GEL TP SCH (08:52)
[2022-09-26] MEDS: DULoxetine 30 MG CAP PO SCH (08:52)
[2022-09-26] MEDS: Lisinopril 5 MG TAB PO SCH (08:53)
[2022-09-26 10:53] VITALS: BMI 25.4
[2022-09-26] MEDS: Senokot S 8.6-50 MG TAB PO PRN (13:56)
[2022-09-26] MEDS ORDERED: Senokot S 8.6-50 MG TAB PO PRN (15:30)
[2022-09-26] MEDS: Cepastat Lozenges 1 LOZ PO PRN (19:59)
[2022-09-26] MEDS: Transdermal Patch Removal TOP SCH (20:00)
[2022-09-26] MEDS: Mirtazapine 30 MG TAB PO SCH (20:00)
[2022-09-26] MEDS: Fluticasone Propionate Nasal Spray 16 gm Bottle NASAL SCH (20:00)
[2022-09-26] MEDS: ALPRAZolam 0.5 MG TAB PO SCH (20:00)
[2022-09-27] MEDS: Acetaminophen 500 MG TAB PO SCH ×3 (01:40→17:10)
[2022-09-27] MEDS: Cyclobenzaprine 10 MG TAB PO PRN ×2 (01:41→20:04)
[2022-09-27] MEDS: Levothyroxine Sodium 100 MCG TAB PO SCH (05:49)
[2022-09-27] MEDS: HYDROcodone/Acetaminophen 5/325 mg Tablet PO PRN ×2 (05:49→20:03)
[2022-09-27] MEDS: Lisinopril 5 MG TAB PO SCH (08:50)
[2022-09-27] MEDS: Loratadine 10 MG TAB PO SCH (08:50)
[2022-09-27] MEDS: Diclofenac 1% 100 GM GEL TP SCH (08:50)
[2022-09-27] MEDS: DULoxetine 30 MG CAP PO SCH (08:50)
[2022-09-27] MEDS: Enoxaparin Sodium 40 MG/0.4 ML SYRINGE SC SCH (08:50)
[2022-09-27] MEDS: Lidocaine 5% Patch TD SCH (08:50)
[2022-09-27] MEDS: Cepastat Lozenges 1 LOZ PO PRN ×2 (14:45→20:04)
[2022-09-27] MEDS: Benzonatate 100 MG CAP PO PRN ×2 (14:45→20:04)
[2022-09-27] MEDS: ALPRAZolam 0.5 MG TAB PO SCH (20:04)
[2022-09-27] MEDS: Mirtazapine 30 MG TAB PO SCH (20:04)
[2022-09-27] MEDS: Fluticasone Propionate Nasal Spray 16 gm Bottle NASAL SCH (20:06)
[2022-09-27] MEDS: Transdermal Patch Removal TOP SCH (20:06)
[2022-09-28] MEDS: Acetaminophen 500 MG TAB PO SCH ×2 (01:39→10:10)
[2022-09-28] MEDS: Levothyroxine Sodium 100 MCG TAB PO SCH (05:43)
[2022-09-28] MEDS: Cepastat Lozenges 1 LOZ PO PRN (05:49)
[2022-09-28 08:10] VITALS: BP 135/83; TEMP 98.2
[2022-09-28] MEDS: HYDROcodone/Acetaminophen 5/325 mg Tablet PO PRN (09:00)
[2022-09-28] MEDS: Benzonatate 100 MG CAP PO PRN (09:00)
[2022-09-28] MEDS: Lisinopril 5 MG TAB PO SCH (09:02)
[2022-09-28] MEDS: DULoxetine 30 MG CAP PO SCH (09:02)
[2022-09-28] MEDS: Loratadine 10 MG TAB PO SCH (09:02)
[2022-09-28] MEDS: Diclofenac 1% 100 GM GEL TP SCH (09:03)
[2022-09-28] MEDS: Enoxaparin Sodium 40 MG/0.4 ML SYRINGE SC SCH (09:03)
[2022-09-28] MEDS: Lidocaine 5% Patch TD SCH (09:55)
== END 2022-09-28 11:21 | DRG 948 ==
LOC: NAV ACUTE 17:59
PROVIDERS: ADMIT Family Medicine; ATTEND Family Medicine
DX: R53.81 Other malaise (principal); S22.080D Wedge compression fracture of T11-T12 vertebra, subsequent encounter for fracture with routine healing; S32.040D Wedge compression fracture of fourth lumbar vertebra, subsequent encounter for fracture with routine healing; I48.91 Unspecified atrial fibrillation; E03.9 Hypothyroidism, unspecified; I10 Essential (primary) hypertension; K21.9 Gastro-esophageal reflux disease without esophagitis; F32.A Depression, unspecified; Z96.643 Presence of artificial hip joint, bilateral; Z96.651 Presence of right artificial knee joint; M54.9 Dorsalgia, unspecified; R53.1 Weakness; F41.9 Anxiety disorder, unspecified; Z98.890 Other specified postprocedural states; Z90.49 Acquired absence of other specified parts of digestive tract
CPT/HCPCS: 36415; 71045; 80053; 85025; 87811; J1650